=== PATIENT | male | born 1960 | race Caucasian/White ===

== ENCOUNTER 2020-03-26 15:59 | Emergency (ER) | payer OTHER ==
[~2020-03-26] VITALS: Ht 165.1 cm; Wt 77.6 kg
[2020-03-26 16:00] VITALS: BP 138/74
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
--- NOTE | 2020-03-26 16:15 | NUR ---
DR WHITLOCK EXAMINING PT
[2020-03-26 16:23] VITALS: BP 138/74
--- NOTE | 2020-03-26 16:23 | NUR ---
PATIENT [facility] [employer]ICE DEPT. PATIENT EXAMINED BY DR. WHITLOCK. PATIENT MEDICALLY CLEARED AND RELEASED IN CUSTODY IN STABLE CONDITION. ORIGINAL PRE-BOOK FORM GIVEN TO OFFICER [place].
== END 2020-03-26 16:23 ==
LOC: MED 15:59
DX: Z04.1 Encounter for examination and observation following transport accident (principal); Z02.89 Encounter for other administrative examinations
CPT/HCPCS: 99283